=== PATIENT | female | born 1970 | race Caucasian/White ===

== ENCOUNTER 2023-06-09 06:19 | Day surgery (SDC) | payer OTHER ==
[~2023-06-09] VITALS: Ht 152.4 cm; Wt 66.7 kg
[2023-06-09] MEDS ORDERED: SODIUM CHLORIDE 0.9% 1,000 ML IV ONE (07:00)
[2023-06-09] MEDS ORDERED: SODIUM CHLORIDE 0.9% 0 ML ONE (07:49)
[2023-06-09] MEDS ORDERED: FentaNYL CITRATE PF 100 MCG/2 ML VIAL ONE (08:22)
[2023-06-09] MEDS ORDERED: MIDAZOLAM HCL 2 MG/2 ML VIAL ONE (08:22)
[2023-06-09] MEDS ORDERED: SODIUM CHLORIDE 0.9% 1,000 ML ONE (08:25)
[2023-06-09 09:15] VITALS: PULSE 75; RESP 14; O2SAT 100
[2023-06-09] MEDS ORDERED: MethylPREDNISolone SOD SUCC 125 MG/2 ML VIAL IVP ONE (09:15)
[2023-06-09] MEDS ORDERED: MethylPREDNISolone SOD SUCC 125 MG/2 ML VIAL ONE (09:41)
[2023-06-09] MEDS ORDERED: LIDOCAINE 2% 11 ML JELLY ONE (17:46)
[2023-06-09] MEDS ORDERED: BENZOCAINE 20% 50 MCG/SPRAY 57 GM ONE (17:46)
[2023-06-09] MEDS ORDERED: LIDOCAINE 4% 50 ML SOLUTION ONE (17:46)
== END 2023-06-09 11:10 | disposition home or self-care (01) ==
LOC: SURGERY 06:19
PROVIDERS: ATTEND Internal Medicine Critical Care Medicine
DX: J38.4 Edema of larynx (principal); B37.0 Candidal stomatitis; Z79.899 Other long term (current) drug therapy; Z98.890 Other specified postprocedural states
CPT/HCPCS: 31623; 88112; 87206; 87101; 87220; 87070; 31624; 71045; 87015; J3010; J2250; J2930; Q9967; J7030; Z7610